=== PATIENT | female | born 1980 | race Two or more races ===

== ENCOUNTER 2021-04-30 14:35 | Emergency (ER) | payer SELFPAY ==
[~2021-04-30] VITALS: Ht 165.1 cm; Wt 75.0 kg
[2021-04-30 14:54] VITALS: BP 161/98
== END 2021-04-30 20:31 | disposition home or self-care (01) ==
LOC: ER 14:35
DX: M79.661 Pain in right lower leg (principal); M79.662 Pain in left lower leg; F41.9 Anxiety disorder, unspecified; I10 Essential (primary) hypertension
CPT/HCPCS: 93970; 99284

== ENCOUNTER → 2021-06-17 | Outpatient (CLI) | payer BC ==
[2021-06-17 12:06] LABS: T4 FREE 0.87 ng/dL (0.76-1.46)
[2021-06-17 14:25] LABS: TRIOIODOTHYRONINE TOTAL 1.07 ng/ml (0.60-1.81); VITAMIN B12 SERUM 619 pg/mL (211-911)
[2021-06-17 14:33] LABS: FOLIC ACID (FOLATE) SERUM > 20.00 ng/mL (>5.38)
== END | disposition home or self-care (01) ==
LOC: LAB 10:32
PROVIDERS: ATTEND Psychiatry & Neurology Neurology
DX: R51.9 Headache, unspecified (principal); M79.609 Pain in unspecified limb; R10.9 Unspecified abdominal pain
CPT/HCPCS: 36415; 82607; 82746; 83036; 84439; 84443; 84480